=== PATIENT | female | born 1985 | race Caucasian/White ===

== ENCOUNTER 2020-04-30 22:30 | Emergency (ER) | payer OTHER ==
[~2020-04-30] VITALS: Ht 157.5 cm; Wt 63.5 kg
[2020-04-30 22:36] VITALS: BP 111/79
[2020-04-30 23:04] VITALS: BP 111/79
== END 2020-04-30 23:05 | disposition home or self-care (01) ==
LOC: MED 22:30
DX: J30.2 Other seasonal allergic rhinitis (principal); Z20.822 Contact with and (suspected) exposure to COVID-19
CPT/HCPCS: 87426; 99283; U0003

== ENCOUNTER 2021-02-08 12:15 | Emergency (ER) | payer OTHER ==
[~2021-02-08] VITALS: Ht 157.5 cm; Wt 63.5 kg
[2021-02-08 12:17] VITALS: BP 129/89
--- NOTE | 2021-02-08 12:22 | NUR ---
35 Y/O FEMALE C/O COVID 19 SYMPTOMS. WITH C/O OF NAUSEA AND RUNNY NOSE. REQUESTING FOR COVID TEST. ABD SOFT NON TENDER. LUNG SOUNDS CLEAR. DENIES ANY RECENT FEVER. MEDHX: DENIES NKA
--- NOTE | 2021-02-08 12:28 | NUR ---
JUANY SWAB COLLECTED AND SENT TO LAB
--- NOTE | 2021-02-08 12:30 | NUR ---
NOVEL SWAB COLLECTED AND SENT TO LAB
[2021-02-08] MEDS ORDERED: PROM118S5 PO (12:35)
--- NOTE | 2021-02-08 12:35 | NUR ---
[facility] EXAMINING PT
[2021-02-08 13:17] VITALS: BP 129/89
--- NOTE | 2021-02-08 13:18 | NUR ---
Patient discharged with v/s stable. Written and verbal after care instructions given and explained. Patient alert, oriented and verbalized understanding of instructions. Ambulatory with steady gait. All questions addressed prior to discharge. ID band removed. Patient advised to follow up with PMD. Rx of PROMETHAZINE given. Patient educated on indication of medication including possible reaction and side effects. Opportunity to ask questions provided and answered.
== END 2021-02-08 13:18 | disposition home or self-care (01) ==
LOC: MED 12:15
DX: B34.9 Viral infection, unspecified (principal); Z20.822 Contact with and (suspected) exposure to COVID-19; Z79.899 Other long term (current) drug therapy
CPT/HCPCS: 87426; 99283; U0003

== ENCOUNTER 2021-08-14 12:57 | Outpatient (CLI) | payer OTHER ==
[~2021-08-14 12:57] MED LIST: PROM118S5 PO
[2021-08-14 13:57] LABS: BASOPHILS # (AUTO) 0.1 K/uL (0.00-0.22); BASOPHILS % (AUTO) 1.2 % (0.0-2.0); EOSINOPHILS # (AUTO) 0.1 K/uL (0-0.4); EOSINOPHILS % (AUTO) 1.6 % (0.0-4.0); HEMATOCRIT 38.8 % (36-48); HEMOGLOBIN 13.2 g/dL (12.0-16.0); LYMPHOCYTES % (AUTO) 40.8 % (20.5-51.1); MEAN CORPUSCULAR HEMOGLOBIN 31 pg (27-31); MEAN CORPUSCULAR HGB CONC 34 g/dL (33-37); MEAN CORPUSCULAR VOLUME 91.6 fL (80-94); MONOCYTES # (AUTO) 0.4 K/uL (0.8-1.0); MONOCYTES % (AUTO) 8.4 % (1.7-9.3); NEUTROPHILS # (AUTO) 2.3 K/uL (1.8-7.7); PLATELET COUNT (AUTO) 258 K/uL (140-450); RED BLOOD CELL COUNT(AUTO) 4.23 MIL/uL (4.20-5.40); RED CELL DISTRIBUTION WIDTH 13.1 % (11.6-13.7); WHITE BLOOD COUNT (AUTO) 4.9 K/uL (4.8-10.8)
[2021-08-14 14:22] LABS: ALBUMIN 4.3 g/dL (3.4-5.0); ANION GAP 9.4 (8-16); CARBON DIOXIDE 28.5 mmol/L (21-32); CHOL/HDL RATIO 2.2 (1-4.5); CREATININE 0.7 mg/dL (0.6-1.3); POTASSIUM 3.9 mmol/L (3.5-5.1); THYROID STIMULATING HORMONE 1.27 uIU/mL (0.34-3.74); TOTAL BILIRUBIN 0.6 mg/dL (0.0-1.0)
== END 2021-08-14 20:51 | disposition home or self-care (01) ==
LOC: MLB 12:57
DX: L50.0 Allergic urticaria (principal)
CPT/HCPCS: 36415; 80053; 83036; 84443; 85025; 86003